=== PATIENT | female | born 1960 | race Native Hawaiian/Other Pacific Islander ===

== ENCOUNTER 2021-04-07 17:00 | Outpatient (AMBR) | payer MEDICAID, SELFPAY ==
--- NOTE | 2021-04-07 18:04 | PTNOTE_ITS ---
PT Outpatient Daily Note Date of Service: 04/07/21 OP Daily Note Visit Reasons: low back pain Outpatient Physical Therapy Treatment Date: 04/07/21 Subjective: Pt reports less LBP after therapy visits. It's not very sore today. Objective: SEe F/S for therex MT: STM L/S paraspinals x10' Mechanical traction L/S x7' at 40 lbs Assessment: Good response to manual therapy and traction to reduce LBP Plan: Continue per POC Length of Time (minutes) of Treatment: 30 Minutes Office Procedures PT Procedures PT Date of Service: 04/07/21 Therapeutic Exercise 15 minutes: Yes Manual Paint Process Engineer 15 minutes: Yes
--- NOTE | 2021-04-19 18:41 | PTNOTE_ITS ---
PT OP Progress/Discharge Note Date of Service: 04/19/21 Progress Note/DC Note Progress Note/Discharge Note: DC Note Patient Information Visit Reasons: low back pain Service Continue Service or Discharge: Discharge Discharge Date: 04/19/21 Status Assessment: Pt attended the initial evaluation and 09/10 Rx visits and no showed 5 times over the past couple months including today. Pt?s attendance is not consistent enough to make progress with goals. Pt will be D/C'd according to non-compliance with attendance policy. Plan: D/C Office Procedures PT Procedures PT Date of Service: 04/07/21 Therapeutic Exercise 15 minutes: Yes Manual Customer Service Advocate 15 minutes: Yes
== END 2021-04-28 23:59 | disposition home or self-care (01) ==
DX: M54.5 Low back pain (principal); M62.830 Muscle spasm of back; M47.817 Spondylosis without myelopathy or radiculopathy, lumbosacral region; E11.9 Type 2 diabetes mellitus without complications; I10 Essential (primary) hypertension
CPT/HCPCS: 97110; 97140

== ENCOUNTER → 2025-04-03 | Outpatient (CLI) | payer MEDICARE, MEDICAID, SELFPAY ==
--- NOTE | 2025-04-03 12:00 | XR_ITS ---
Examination: Breast ultrasound, unilateral, right complete Date and time of exam: April 03, 2025 1205 hours INDICATIONS: Mammogram September 03, 2024 8 mm nodule retroareolar region right breast, right breast sonogram September 03, 2024 10 mm nodule retroareolar region right breast Technique: Real-time moralez scale ultrasonographic imaging performed right breast including all 4 quadrants as well as nipple retroareolar and axillary region. Findings: Retroareolar cystic complex 7 x 8 mm IMPRESSION: BI-RADS Category 2: Benign findings
== END | disposition home or self-care (01) ==
PROVIDERS: PCP Physician Assistant; Referring Provider Physician Assistant; Visit Provider Physician Assistant
DX: N63.10 Unspecified lump in the right breast, unspecified quadrant (principal)
CPT/HCPCS: 76641